=== PATIENT | male | born 1965 | race Caucasian/White ===

== ENCOUNTER 2018-12-24 13:00 | Inpatient (IN) | payer BC ==
[~2018-12-24] VITALS: Ht 180.3 cm; Wt 128.4 kg
[2018-12-24 14:10] LABS: BASO % 0 % (0-3); EOS % 0 % (0-3); HEMATOCRIT 42.2 % (39.0-53.0); HEMOGLOBIN 14.2 g/dL (13.0-17.5); LYMPH # 1.6 x10^3/uL (1.0-4.8); LYMPH % 12 % (24-48); MEAN CORPUSCULAR HEMOGLOBIN 30 pg (25-35); MEAN CORPUSCULAR HGB CONC 34 g/dL (31-37); MEAN CORPUSCULAR VOLUME 89 fL (79-100); MONO # 0.6 x10^3/uL (0.0-1.1); MONO % 4 % (0-9); NEUT % 84 % (31-73); PLATELET COUNT 309 x10^3/uL (140-400); RED BLOOD COUNT 4.74 x10^6/uL (4.30-5.70); RED CELL DISTRIBUTION WIDTH 14.9 % (11.5-14.5); WHITE BLOOD COUNT 14.2 x10^3/uL (4.0-11.0)
[2018-12-24 14:24] LABS: CALCIUM 9.2 mg/dL (8.5-10.1); CREATININE 1.6 mg/dL (0.7-1.3); DIRECT BILIRUBIN 0.3 mg/dL (0.0-0.2); GFR 45.1; TOTAL BILIRUBIN 0.8 mg/dL (0.2-1.0); TOTAL PROTEIN 7.9 g/dL (6.4-8.2)
[2018-12-24] MEDS ORDERED: IV NORMAL SALINE 1000ML BAG 1,000 ML IV SCH (14:33)
[2018-12-24] MEDS ORDERED: METF500T16 PO (14:38)
[2018-12-24] MEDS ORDERED: ONDANSETRON PF 4 MG/2 ML VIAL. IV ONE (14:45)
[2018-12-24] MEDS: fentaNYL PF VIAL 100 MCG/2 ML VIAL IV PRN ×3 (15:03→15:36)
--- NOTE | 2018-12-24 15:21 | RAD ---
EXAM: CT Abdomen and Pelvis without IV contrast CLINICAL HISTORY: BILAT FLANK PAIN N.V COMPARISON: none TECHNIQUE: Helical CT of the abdomen and pelvis without intravenous contrast. Axial, coronal and sagittal reformatted images were generated. PQRS compliance statement - One or more of the following individualized dose reduction techniques were utilized for this study: 1. Automated exposure control 2. Adjustment of the mA and/or kV according to patient size 3. Use of iterative reconstruction technique FINDINGS: Lack of intravenous contrast limits evaluation of solid organs, vasculature, and lymph nodes. Lower chest: Lung bases are essentially clear. Abdomen and Pelvis: No focal liver lesion. High density material within the gallbladder likely sludge. No biliary ductal dilatation. Spleen is unremarkable. Adrenal glands and pancreas are unremarkable. 3 mm left interpolar nonobstructing renal calculus is seen. 5 mm left lower pole nonobstructing renal calculus is seen. There is a 5 mm calculus at the distal left ureter approximately 1.3 cm from the ureterovesicular junction. No focal renal lesion. Mild left hydronephrosis and hydroureter. Appendix is normal. No small or large bowel dilatation. No evidence of bowel obstruction. Moderate colonic stool content. Bladder is grossly unremarkable. No abdominal pelvic ascites. No abdominal pelvic lymphadenopathy. Small fat-containing periumbilical hernia. Bones: Multilevel degenerative changes of the spine most prominent at L4-5 and L5-S1. No aggressive osseous lesion is seen. IMPRESSION: 1. A 5 mm distal left ureteral calculus results in mild left hydronephrosis and hydroureter, approximately 1.3 cm from the ureterovesicular junction. 2. Left interpolar and left lower pole nonobstructing renal calculi are also seen. Electronically signed by: Ata Castaneda MD (12/24/2018 3:18 PM) [facility]
--- NOTE | 2018-12-24 16:32 | PDOC1 ---
History and Physical Date of Admission Date of Admission DATE: 12/24/18 TIME: 16:32 Identification/Chief Complaint Chief Complaint SEEN IN ER presented the emergency department with abdominal pain/bilateral flank pain.had nausea with a few episodes of nonbilious nonbloody emesis . The pain is a sharp shooting pain that radiates around to the LEFT groin. He denies hematuria or history of kidney stones. The pain is severe and started 12/24 CT CONFIRMS A STONE. Past Medical History Past Medical History Past Medical History Past Medical History: Diabetes-Type II, Hypertension Past Surgical History: No Surgical History Alcohol Use: None Drug Use: None FAMILY HX OBESITY GI: No pertinent hx Psych: No pertinent hx Infectious disease: No pertinent hx ENT: No pertinent hx Renal/: No pertinent hx Family History Family History: High Cholestrol, Hypertension Social History Smoke: No ALCOHOL: occassional Drugs: None Current Medications Current Medications Current Medications Fentanyl Citrate (Fentanyl 2ml Vial) 50 mcg PRN Q30MIN PRN IV SEVERE PAIN Last administered on 12/24/18at 15:36; Start 12/24/18 at 14:45; Stop 12/24/18 at 15:36 ; Status DC Sodium Chloride 1,000 ml @ 1,000 mls/hr Q1H IV Last administered on 12/24/18at 14:33; Start 12/24/18 at 14:33; Stop 12/24/18 at 15:32; Status DC Ondansetron HCl (Zofran) 4 mg 1X ONCE IV Last administered on 12/24/18at 15:02 ; Start 12/24/18 at 14:45; Stop 12/24/18 at 14:46; Status DC Active Scripts Active Reported Metformin Hcl 500 Mg Tablet 500 Mg PO BIDWMEALS Allergies Allergies: Coded Allergies: No Known Drug Allergies (Unverified , 12/24/18) ROS Review of System 14 PT ROS NEG EXCEPT NOTED General: No: Chills, Night Sweats, Fatigue, Malaise, Appetite, Other PSYCHOLOGICAL ROS: No: Anxiety, Behavioral Disorder, Concentration difficultie , Decreased libido, Depression, Disorientation, Hallucinations, Hostility, Irritablity, Memory difficulties, Mood Swings, Obsessive thoughts, Physical abuse, Sexual abuse, Sleep disturbances, Suicidal ideation, Other Eyes: No Blurry vision, No Decreased vision, No Double vision, No Dry eyes, No Excessive tearing, No Eye Pain, No Itchy Eyes, No Loss of vision, No Photophobia , No Scotomata, No Uses contacts, No Uses glasses, No Other HEENT: No: Heacaches, Visual Changes, Hearing change, Nasal congestion, Nasal discharge, Oral lesions, Sinus pain, Sore Throat, Epistaxis, Sneezing, Snoring, Tinnitus, Vertigo, Vocal changes, Other ALLERGY AND IMMUNOLOGY: No: Hives, Insect Bite Sensitivity, Itchy/Watery Eyes, Nasal Congestion, Post Nasal Drip, Seasonal Allergies, Other Hematological and Lymphatic: No: Bleeding Problems, Blood Clots, Blood Transfusions, Brusing, Night Sweats, Pallor, Swollen Lymph Nodes, Other ENDOCRINE: No: Breast Changes, Galactorrhea, Hair Pattern Changes, Hot Flashes , Malaise/lethargy, Mood Swings, Palpitations, Polydipsia/polyuria, Skin Changes , Temperature Intolerance, Unexpected Weight Changes, Other Breast: No New/Changing Breast Lumps, No Nipple changes, No Nipple discharge, No Other Respiratory: No: Cough, Hemoptysis, Orthopnea, Pleuritic Pain, Shortness of breath, SOB with excertion, Sputum Changes, Stridor, Tachypnea, Wheezing, Other Cardiovascular: No Chest Pain, No Palpitations, No Orthopnea, No Paroxysmal Noc. Dyspnea, No Edema, No Lt Headedness, No Other Gastrointestinal: Yes Nausea, Yes Abdominal Pain Genitourinary: YES Dysuria, YES Pain, YES Flank Pain Musculoskeletal: No Gait Disturbance, No Joint Pain, No Joint Stiffness, No Joint Swelling, No Muscle Pain, No Muscular Weakness, No Pain In:, No Swelling In:, No Other Neurological: No Behavorial Changes, No Bowel/Bladder ControlChng, No Confusion , No Dizziness, No Gait Disturbance, No Headaches, No Impaired Coord/balance, No Memory Loss, No Numbness/Tingling, No Seizures, No Speech Problems, No Tremors, No Visual Changes, No Weakness, No Other Skin: No Dry Skin, No Eczema, No Hair Changes, No Lumps, No Mole Changes, No Mottling, No Nail Changes, No Pruritus, No Rash, No Skin Lesion Changes, No Other, No Acne Physical Exam Physical Exam Physical Exam Physical Exam SEE ABOVE Constitutional: Well developed, well nourished, MOD acute distress, non-toxic appearance. [] HENT: Normocephalic, atraumatic, bilateral external ears normal, oropharynx moist, no oral exudates, nose normal. [] Eyes: PERRLA, EOMI, conjunctiva normal, no discharge. [] Neck: Normal range of motion, no tenderness, supple, no stridor. [] Cardiovascular:Heart rate regular rhythm, no murmur [] Lungs & Thorax: Bilateral breath sounds clear to auscultation [] Abdomen: Bowel sounds normal, soft, no tenderness, no masses, no pulsatile masses. [] Skin: Warm, dry, no erythema, no rash. [] Back: No tenderness, bilateral cva ttp present. Extremities: No tenderness, no cyanosis, no clubbing, ROM intact, no edema. [] Neurologic: Alert and oriented X 3, normal motor function, normal sensory function, no focal deficits noted. [] Psychologic: Affect normal, judgement normal, mood normal. [] General: Alert, Oriented X3, Cooperative, moderate distress HEENT: Atraumatic, PERRLA Lungs: Clear to auscultation Heart: S1S2, RRR, no thrills, no rubs, no gallops, no murmurs Cardiovascular: S1 Breasts: Not examined Abdomen: Normal bowel sounds, Soft Rectal Exam: not examined Extremities: No clubbing, No cyanosis Neuro: Normal speech, Cranial nerves 3-12 NL Psych/Mental Status: Mental status NL, Mood NL Vitals Vitals Vital Signs Date Time Temp Pulse Resp B/P (MAP) Pulse Ox O2 Delivery O2 Flow Rate FiO2 12/24/18 15:38 98 28 134/70 (91) 99 Room Air 12/24/18 14:05 97.6 97.6 Labs Labs Laboratory Tests Test 12/24/18 14:05 12/24/18 15:30 White Blood Count 14.2 x10^3/uL (4.0-11.0) Red Blood Count 4.74 x10^6/uL (4.30-5.70) Hemoglobin 14.2 g/dL (13.0-17.5) Hematocrit 42.2 % (39.0-53.0) Mean Corpuscular Volume 89 fL (79-100) Mean Corpuscular Hemoglobin 30 pg (25-35) Mean Corpuscular Hemoglobin Concent 34 g/dL (31-37) Red Cell Distribution Width 14.9 % (11.5-14.5) Platelet Count 309 x10^3/uL (140-400) Neutrophils (%) (Auto) 84 % (31-73) Lymphocytes (%) (Auto) 12 % (24-48) Monocytes (%) (Auto) 4 % (0-9) Eosinophils (%) (Auto) 0 % (0-3) Basophils (%) (Auto) 0 % (0-3) Neutrophils # (Auto) 12.0 x10^3uL (1.8-7.7) Lymphocytes # (Auto) 1.6 x10^3/uL (1.0-4.8) Monocytes # (Auto) 0.6 x10^3/uL (0.0-1.1) Eosinophils # (Auto) 0.0 x10^3/uL (0.0-0.7) Basophils # (Auto) 0.0 x10^3/uL (0.0-0.2) Sodium Level 146 mmol/L (136-145) Potassium Level 3.0 mmol/L (3.5-5.1) Chloride Level 106 mmol/L (98-107) Carbon Dioxide Level 24 mmol/L (21-32) Anion Gap 16 (6-14) Blood Urea Nitrogen 11 mg/dL (8-26) Creatinine 1.6 mg/dL (0.7-1.3) Estimated GFR (Cockcroft-Gault) 45.1 Glucose Level 171 mg/dL (70-99) Calcium Level 9.2 mg/dL (8.5-10.1) Total Bilirubin 0.8 mg/dL (0.2-1.0) Direct Bilirubin 0.3 mg/dL (0.0-0.2) Aspartate Amino Transf (AST/SGOT) 21 U/L (15-37) Alanine Aminotransferase (ALT/SGPT) 39 U/L (16-63) Alkaline Phosphatase 49 U/L (46-116) Total Protein 7.9 g/dL (6.4-8.2) Albumin 4.0 g/dL (3.4-5.0) Lipase 79 U/L (73-393) Lactic Acid Level 5.1 mmol/L (0.4-2.0) Laboratory Tests Test 12/24/18 14:05 12/24/18 15:30 White Blood Count 14.2 x10^3/uL (4.0-11.0) Red Blood Count 4.74 x10^6/uL (4.30-5.70) Hemoglobin 14.2 g/dL (13.0-17.5) Hematocrit 42.2 % (39.0-53.0) Mean Corpuscular Volume 89 fL (79-100) Mean Corpuscular Hemoglobin 30 pg (25-35) Mean Corpuscular Hemoglobin Concent 34 g/dL (31-37) Red Cell Distribution Width 14.9 % (11.5-14.5) Platelet Count 309 x10^3/uL (140-400) Neutrophils (%) (Auto) 84 % (31-73) Lymphocytes (%) (Auto) 12 % (24-48) Monocytes (%) (Auto) 4 % (0-9) Eosinophils (%) (Auto) 0 % (0-3) Basophils (%) (Auto) 0 % (0-3) Neutrophils # (Auto) 12.0 x10^3uL (1.8-7.7) Lymphocytes # (Auto) 1.6 x10^3/uL (1.0-4.8) Monocytes # (Auto) 0.6 x10^3/uL (0.0-1.1) Eosinophils # (Auto) 0.0 x10^3/uL (0.0-0.7) Basophils # (Auto) 0.0 x10^3/uL (0.0-0.2) Sodium Level 146 mmol/L (136-145) Potassium Level 3.0 mmol/L (3.5-5.1) Chloride Level 106 mmol/L (98-107) Carbon Dioxide Level 24 mmol/L (21-32) Anion Gap 16 (6-14) Blood Urea Nitrogen 11 mg/dL (8-26) Creatinine 1.6 mg/dL (0.7-1.3) Estimated GFR (Cockcroft-Gault) 45.1 Glucose Level 171 mg/dL (70-99) Calcium Level 9.2 mg/dL (8.5-10.1) Total Bilirubin 0.8 mg/dL (0.2-1.0) Direct Bilirubin 0.3 mg/dL (0.0-0.2) Aspartate Amino Transf (AST/SGOT) 21 U/L (15-37) Alanine Aminotransferase (ALT/SGPT) 39 U/L (16-63) Alkaline Phosphatase 49 U/L (46-116) Total Protein 7.9 g/dL (6.4-8.2) Albumin 4.0 g/dL (3.4-5.0) Lipase 79 U/L (73-393) Lactic Acid Level 5.1 mmol/L (0.4-2.0) Images Images COMPARISON: none TECHNIQUE: Helical CT of the abdomen and pelvis without intravenous contrast. Axial, coronal and sagittal reformatted images were generated. PQRS compliance statement - One or more of the following individualized dose reduction techniques were utilized for this study: 1. Automated exposure control 2. Adjustment of the mA and/or kV according to patient size 3. Use of iterative reconstruction technique FINDINGS: Lack of intravenous contrast limits evaluation of solid organs, vasculature, and lymph nodes. Lower chest: Lung bases are essentially clear. Abdomen and Pelvis: No focal liver lesion. High density material within the gallbladder likely sludge. No biliary ductal dilatation. Spleen is unremarkable. Adrenal glands and pancreas are unremarkable. 3 mm left interpolar nonobstructing renal calculus is seen. 5 mm left lower pole nonobstructing renal calculus is seen. There is a 5 mm calculus at the distal left ureter approximately 1.3 cm from the ureterovesicular junction. No focal renal lesion. Mild left hydronephrosis and hydroureter. Appendix is normal. No small or large bowel dilatation. No evidence of bowel obstruction. Moderate colonic stool content. Bladder is grossly unremarkable. No abdominal pelvic ascites. No abdominal pelvic lymphadenopathy. Small fat-containing periumbilical hernia. Bones: Multilevel degenerative changes of the spine most prominent at L4-5 and L5-S1. No aggressive osseous lesion is seen. IMPRESSION: 1. A 5 mm distal left ureteral calculus results in mild left hydronephrosis and hydroureter, approximately 1.3 cm from the ureterovesicular junction. 2. Left interpolar and left lower pole nonobstructing renal calculi are also seen. Electronically signed by: Ata Castaneda MD (12/24/2018 3:18 PM) [facility] VTE Prophylaxis Ordered VTE Prophylaxis Devices: Yes VTE Pharmacological Prophylaxi: Yes Assessment/Plan Assessment/Plan IMPRESSION: 1. 5 mm distal left ureteral calculus results in mild left hydronephrosis and hydroureter, approximately 1.3 cm from the uretero-vesicular junction. 2. Left interpolar and left lower pole nonobstructing renal calculi are also seen. 3. INTRACTABLE PAIN 4. MORBID OBESITY 5. degenerative changes of the spine most prominent at L4-5 and L5-S1. No aggressive osseous lesion WAS seen. PLAN IV PAIN CONTROL IV FLUID SUPPORT UROLOGY CONSULT DVT PROPHYLAXIS REINIER BRITT MD Dec 24, 2018 16:32
[2018-12-24] MEDS ORDERED: ONDANSETRON PF 4 MG/2 ML VIAL. IV PRN (16:45)
[2018-12-24] MEDS ORDERED: MORPHINE SULFATE 2 MG/ML VIAL. IV PRN (16:45)
[2018-12-24] MEDS: IV NORMAL SALINE 1000ML BAG 1,000 ML IV SCH (16:48)
[2018-12-24] MEDS ORDERED: LOVA40TA2 PO (17:39)
--- NOTE | 2018-12-24 17:40 | PHYS DOC ---
Past Medical History Past Medical History: Diabetes-Type II, Hypertension Past Surgical History: No Surgical History Alcohol Use: None Drug Use: None Adult General Chief Complaint Chief Complaint: ABDOMINAL PAIN HPI HPI 53-year-old male presenting the emergency department today with abdominal pain/ bilateral flank pain. He has had nausea with a few episodes of nonbilious nonbloody emesis as well. The pain is a sharp shooting pain that radiates around to the groin. He denies hematuria or history of kidney stones. The pain is severe and started today. Review of systems is negative for chest pain shortness of breath cough fevers or chills. All other review of systems is negative unless otherwise noted in history of present illness. ED course: 53-year-old male presenting with flank pain found to have 5 mm ureterolithiasis around the UVJ. IV fluids and pain meds given in the emergency department. We will admit the patient for IV pain control and IV fluids. Urology consult ordered. I spoke with Dr. Bergeron who accepts patient for admission. Patient was unable to void in the emergency department. Patient was asked multiple times for urine specimen. We will allow the inpatient team to obtain the urine specimen and follow-up on this. Review of Systems Review of Systems SEE ABOVE. Current Medications Current Medications Current Medications Medications (Trade) Dose Ordered Sig/Onva Start Time Stop Time Status Last Admin Dose Admin Fentanyl Citrate (Fentanyl 2ml Vial) 50 mcg PRN Q30MIN PRN 12/24/18 14:45 12/24/18 15:36 DC 12/24/18 15:36 50 MCG Ondansetron HCl (Zofran) 4 mg 1X ONCE 12/24/18 14:45 12/24/18 14:46 DC 12/24/18 15:02 4 MG Sodium Chloride 1,000 ml @ 1,000 mls/hr Q1H 12/24/18 14:33 12/24/18 15:32 DC 12/24/18 14:33 1,000 MLS/HR Allergies Allergies Allergies Coded Allergies Type Severity Reaction Last Updated Verified No Known Drug Allergies 12/24/18 No Physical Exam Physical Exam SEE ABOVE Constitutional: Well developed, well nourished, no acute distress, non-toxic appearance. [] HENT: Normocephalic, atraumatic, bilateral external ears normal, oropharynx moist, no oral exudates, nose normal. [] Eyes: PERRLA, EOMI, conjunctiva normal, no discharge. [] Neck: Normal range of motion, no tenderness, supple, no stridor. [] Cardiovascular:Heart rate regular rhythm, no murmur [] Lungs & Thorax: Bilateral breath sounds clear to auscultation [] Abdomen: Bowel sounds normal, soft, no tenderness, no masses, no pulsatile masses. [] Skin: Warm, dry, no erythema, no rash. [] Back: No tenderness, bilateral cva ttp present. Extremities: No tenderness, no cyanosis, no clubbing, ROM intact, no edema. [] Neurologic: Alert and oriented X 3, normal motor function, normal sensory function, no focal deficits noted. [] Psychologic: Affect normal, judgement normal, mood normal. [] Current Patient Data Vital Signs Vital Signs Date Time Temp Pulse Resp B/P (MAP) Pulse Ox O2 Delivery O2 Flow Rate FiO2 12/24/18 15:38 98 28 134/70 (91) 99 Room Air 12/24/18 14:05 97.6 97.6 Lab Values Laboratory Tests Test 12/24/18 14:05 12/24/18 15:30 White Blood Count 14.2 x10^3/uL (4.0-11.0) H Red Blood Count 4.74 x10^6/uL (4.30-5.70) Hemoglobin 14.2 g/dL (13.0-17.5) Hematocrit 42.2 % (39.0-53.0) Mean Corpuscular Volume 89 fL (79-100) Mean Corpuscular Hemoglobin 30 pg (25-35) Mean Corpuscular Hemoglobin Concent 34 g/dL (31-37) Red Cell Distribution Width 14.9 % (11.5-14.5) H Platelet Count 309 x10^3/uL (140-400) Neutrophils (%) (Auto) 84 % (31-73) H Lymphocytes (%) (Auto) 12 % (24-48) L Monocytes (%) (Auto) 4 % (0-9) Eosinophils (%) (Auto) 0 % (0-3) Basophils (%) (Auto) 0 % (0-3) Neutrophils # (Auto) 12.0 x10^3uL (1.8-7.7) H Lymphocytes # (Auto) 1.6 x10^3/uL (1.0-4.8) Monocytes # (Auto) 0.6 x10^3/uL (0.0-1.1) Eosinophils # (Auto) 0.0 x10^3/uL (0.0-0.7) Basophils # (Auto) 0.0 x10^3/uL (0.0-0.2) Sodium Level 146 mmol/L (136-145) H Potassium Level 3.0 mmol/L (3.5-5.1) L Chloride Level 106 mmol/L (98-107) Carbon Dioxide Level 24 mmol/L (21-32) Anion Gap 16 (6-14) H Blood Urea Nitrogen 11 mg/dL (8-26) Creatinine 1.6 mg/dL (0.7-1.3) H Estimated GFR (Cockcroft-Gault) 45.1 Glucose Level 171 mg/dL (70-99) H Calcium Level 9.2 mg/dL (8.5-10.1) Total Bilirubin 0.8 mg/dL (0.2-1.0) Direct Bilirubin 0.3 mg/dL (0.0-0.2) H Aspartate Amino Transferase (AST) 21 U/L (15-37) Alanine Aminotransferase (ALT) 39 U/L (16-63) Alkaline Phosphatase 49 U/L (46-116) Total Protein 7.9 g/dL (6.4-8.2) Albumin 4.0 g/dL (3.4-5.0) Lipase 79 U/L (73-393) Lactic Acid Level 5.1 mmol/L (0.4-2.0) *H Laboratory Tests 12/24/18 14:05 Laboratory Tests 12/24/18 14:05 EKG EKG [] Radiology/Procedures Radiology/Procedures [] Course & Med Decision Making Course & Med Decision Making Pertinent Labs and Imaging studies reviewed. (See chart for details) [] Dragon Disclaimer Dragon Disclaimer This electronic medical record was generated, in whole or in part, using a voice recognition dictation system. Departure Departure Impression: Primary Impression: Ureterolithiasis Disposition: ADMITTED INPATIENT Condition: STABLE Referrals: UNKNOWN PCP NAME (PCP) KATHY CAMPOS MD Dec 24, 2018 17:40
[2018-12-24] MEDS ORDERED: LOSA25TA54 PO (18:00)
[2018-12-24] MEDS: KETOROLAC 30 MG/ML VIAL. IV SCH (18:24)
--- NOTE | 2018-12-24 18:40 | NUR ---
pt arrived to unit at 1730 via gurney in stable condition. pt is alert and oriented. pt is rating his pain 1/10. pt states he has not voided since 42. pt and grandson are at bedside with call light within reach. pt is on RA. received report from DEDRA Doan in ER. will continue to monitor.
[2018-12-24] MEDS ORDERED: POTASSIUM CHLORIDE 20 MEQ TABLET.ER. PO ONE (18:45)
[2018-12-24 19:00] VITALS: BP 122/71
--- NOTE | 2018-12-24 19:50 | NUR ---
Pt triggering positive sepsis screening. MD notified and orders received. Will continue to monitor.
[2018-12-24] MEDS ORDERED: ATORVASTATIN CALCIUM 20 MG TABLET PO SCH (21:00)
[2018-12-24] MEDS: CIPROFLOXACIN 400MG PREMIX 200 ML IV SCH (21:08)
[2018-12-24 23:00] VITALS: BP 135/73
[2018-12-24 23:11] LABS: BILIRUBIN,URINE NEGATIVE (NEG); CLARITY,URINE CLEAR; COLOR,URINE YELLOW; NITRITE,URINE NEGATIVE (NEG); PH,URINE 5.5; PROTEIN,URINE NEGATIVE (NEG-TRACE); UROBILINOGEN,URINE 0.2 mg/dL (0.2 mg/dL)
[2018-12-24 23:23] LABS: BACTERIA,URINE 0 /HPF (0-FEW); RBC,URINE 0 /HPF (0-2); WBC,URINE 0 /HPF (0-4)
[2018-12-25] MEDS: KETOROLAC 30 MG/ML VIAL. IV SCH ×3 (00:08→11:38)
[2018-12-25 03:00] VITALS: BP 124/72
[2018-12-25] MEDS: IV NORMAL SALINE 1000ML BAG 1,000 ML IV SCH ×2 (03:36→11:37)
[2018-12-25 07:00] VITALS: BP_SYST 126; BP_SYST 138; BP_DIAS 64; BP_DIAS 79
[2018-12-25 07:51] LABS: BASO % 0 % (0-3); EOS # 0.1 x10^3/uL (0.0-0.7); EOS % 1 % (0-3); HEMATOCRIT 38.9 % (39.0-53.0); HEMOGLOBIN 13.1 g/dL (13.0-17.5); LYMPH # 2.3 x10^3/uL (1.0-4.8); LYMPH % 23 % (24-48); MEAN CORPUSCULAR HEMOGLOBIN 31 pg (25-35); MEAN CORPUSCULAR HGB CONC 34 g/dL (31-37); MEAN CORPUSCULAR VOLUME 91 fL (79-100); MONO # 0.5 x10^3/uL (0.0-1.1); MONO % 5 % (0-9); NEUT # 7.1 x10^3uL (1.8-7.7); NEUT % 71 % (31-73); PLATELET COUNT 233 x10^3/uL (140-400); RED BLOOD COUNT 4.28 x10^6/uL (4.30-5.70); RED CELL DISTRIBUTION WIDTH 15.2 % (11.5-14.5)
[2018-12-25] MEDS ORDERED: POTASSIUM CHLORIDE 20 MEQ TABLET.ER. PO SCH (08:00)
[2018-12-25 08:05] LABS: CALCIUM 8.4 mg/dL (8.5-10.1); GFR 34.9; POTASSIUM 3.8 mmol/L (3.5-5.1)
[2018-12-25] MEDS ORDERED: LOSARTAN POTASSIUM 25 MG TABLET. PO SCH (09:00)
[2018-12-25] MEDS ORDERED: TAMSULOSIN 0.4 MG CAP.ER.24H. PO SCH (09:00)
[2018-12-25] MEDS: CIPROFLOXACIN 400MG PREMIX 200 ML IV SCH (09:07)
--- NOTE | 2018-12-25 09:13 | PDOC2 ---
HALEY MILLER [employer]IE[employer] 12/25/18 0913: UROLOGY CONSULT Date of Consult Date of Consult DATE: 12/25/18 TIME: 09:03 Identification/Chief Complaint Chief Complaint Kidney stone Source Source: Chart review, Patient History of Present Illness Reason for Visit: Pleasant 53 year old male presented to ER last night early with complaints of left sided flank pain. At that time, the pain was 10/10; A CT scan was done and it was discovered that he had a 5 mm distal left ureteral calculus with mil hydronephrosis and hydroureter, about 1.3 cm from the UVJ. There were also left interpolar and lower pole nonobstructing renal calculi. This is the first time he had had any kidney stones. He does admit a history of pre-diabetes, HTN , high cholesterol and testosterone deficiency for which he receives q 2 week shots from [facility]. He was told at his last testosterone monitoring visit that his prostate was "enlarged" but he denies prostate cancer. He also denies LUTS, hematuria or dysuria. His flank pain/abd pain is zero presently and is overall feeling "fine." Past Medical History Cardiovascular: HTN GI: No pertinent hx Psych: No pertinent hx Infectious disease: No pertinent hx ENT: No pertinent hx Renal/: No pertinent hx Endocrine: Diabetes Family History Family History: High Cholestrol, Hypertension Social History No ALCOHOL: none Drugs: None Current Problem List Problems: (1) Ureterolithiasis Current Medications Current Medications Current Medications Atorvastatin Calcium (Lipitor) 20 mg QHS PO Last administered on 12/24/18at 21: 08; Start 12/24/18 at 21:00 Ciprofloxacin/ Dextrose 200 ml @ 200 mls/hr Q12HR IV Last administered on 12/24at 21:08; Start 12/24/18 at 21:00 Fentanyl Citrate (Fentanyl 2ml Vial) 50 mcg PRN Q30MIN PRN IV SEVERE PAIN Last administered on 12/24/18at 15:36; Start 12/24/18 at 14:45; Stop 12/24/18 at 15:36 ; Status DC Ketorolac Tromethamine (Toradol 30mg Vial) 15 mg Q6HRS IV Last administered on 12/25/18at 06:13; Start 12/24/18 at 18:00; Stop 12/27/18 at 12:01 Losartan Potassium (Cozaar) 25 mg DAILY PO ; Start 12/25/18 at 09:00 Morphine Sulfate (Morphine Sulfate) 2 mg PRN Q2HR PRN IV PAIN Last administered on 12/24/18at 16:45; Start 12/24/18 at 16:45; Stop 12/25/18 at 16:44 Ondansetron HCl (Zofran) 4 mg 1X ONCE IV Last administered on 12/24/18at 15:02 ; Start 12/24/18 at 14:45; Stop 12/24/18 at 14:46; Status DC Ondansetron HCl (Zofran) 4 mg PRN Q8HRS PRN IV NAUSEA/VOMITING; Start 12/24/18 at 16:45; Stop 12/25/18 at 16:44 Potassium Chloride (Klor-Con) 20 meq DAILYWBKFT PO ; Start 12/25/18 at 08:00 Potassium Chloride (Klor-Con) 40 meq 1X ONCE PO Last administered on at 19:39; Start 12/24/18 at 18:45; Stop 12/24/18 at 18:46; Status DC Sodium Chloride 1,000 ml @ 100 mls/hr Q10H IV Last administered on 12/25/18at 03:36; Start 12/24/18 at 16:36; Stop 12/25/18 at 16:35 Sodium Chloride 1,000 ml @ 1,000 mls/hr Q1H IV Last administered on 12/24/18at 14:33; Start 12/24/18 at 14:33; Stop 12/24/18 at 15:32; Status DC Tamsulosin HCl (Flomax) 0.4 mg DAILY PO ; Start 12/25/18 at 09:00 Allergies Allergies: Coded Allergies: No Known Drug Allergies (Unverified , 12/24/18) ROS Review Of Systems: CONSTITUTIONAL: No fever or chills EYES: No recent changes SKIN: No rash or itching CARDIOVASCULAR: No chest pain, syncope, palpitations, or edema RESPIRATORY: No SOB or cough GASTROINTESTINAL: No nausea, vomiting or abdominal pain NEUROLOGICAL: No headaches or weakness ENDOCRINE: No cold or heat intolerance GENITOURINARY: No urgency or frequency of urination MUSCULOSKELETAL: No back pain or joint pain LYMPHATICS: No enlarged lymph nodes PSYCHIATRIC: No anxiety or depression Physical Exam Physical Exam: General: Pleasant, no acute distress, well groomed Eyes: conjunctiva anicteric, eyes full range of motion ENT: moist oral mucosa, normal dentition Neck: Trachea midline, no masses Respiratory: unlabored breathing, not using accessory muscles, Back: No CVA pain on testing Abdomen: soft, obese, nontender, nondistended, no hepatosplenomegaly, no masses Skin: no rashes or skin lesions on visualized skin Psych: normal mood, affect. Alert and oriented x 3. Vitals VITALS Vital Signs Date Time Temp Pulse Resp B/P (MAP) Pulse Ox O2 Delivery O2 Flow Rate FiO2 12/25/18 07:00 98.2 73 14 126/79 (95) 98 Room Air 98.2 Labs Labs Laboratory Tests Test 12/24/18 14:05 12/24/18 15:30 12/24/18 19:49 12/24/18 20:42 White Blood Count 14.2 x10^3/uL (4.0-11.0) Red Blood Count 4.74 x10^6/uL (4.30-5.70) Hemoglobin 14.2 g/dL (13.0-17.5) Hematocrit 42.2 % (39.0-53.0) Mean Corpuscular Volume 89 fL (79-100) Mean Corpuscular Hemoglobin 30 pg (25-35) Mean Corpuscular Hemoglobin Concent 34 g/dL (31-37) Red Cell Distribution Width 14.9 % (11.5-14.5) Platelet Count 309 x10^3/uL (140-400) Neutrophils (%) (Auto) 84 % (31-73) Lymphocytes (%) (Auto) 12 % (24-48) Monocytes (%) (Auto) 4 % (0-9) Eosinophils (%) (Auto) 0 % (0-3) Basophils (%) (Auto) 0 % (0-3) Neutrophils # (Auto) 12.0 x10^3uL (1.8-7.7) Lymphocytes # (Auto) 1.6 x10^3/uL (1.0-4.8) Monocytes # (Auto) 0.6 x10^3/uL (0.0-1.1) Eosinophils # (Auto) 0.0 x10^3/uL (0.0-0.7) Basophils # (Auto) 0.0 x10^3/uL (0.0-0.2) Sodium Level 146 mmol/L (136-145) Potassium Level 3.0 mmol/L (3.5-5.1) Chloride Level 106 mmol/L (98-107) Carbon Dioxide Level 24 mmol/L (21-32) Anion Gap 16 (6-14) Blood Urea Nitrogen 11 mg/dL (8-26) Creatinine 1.6 mg/dL (0.7-1.3) Estimated GFR (Cockcroft-Gault) 45.1 Glucose Level 171 mg/dL (70-99) Calcium Level 9.2 mg/dL (8.5-10.1) Total Bilirubin 0.8 mg/dL (0.2-1.0) Direct Bilirubin 0.3 mg/dL (0.0-0.2) Aspartate Amino Transf (AST/SGOT) 21 U/L (15-37) Alanine Aminotransferase (ALT/SGPT) 39 U/L (16-63) Alkaline Phosphatase 49 U/L (46-116) Total Protein 7.9 g/dL (6.4-8.2) Albumin 4.0 g/dL (3.4-5.0) Lipase 79 U/L (73-393) Lactic Acid Level 5.1 mmol/L (0.4-2.0) 2.6 mmol/L (0.4-2.0) Glucose (Fingerstick) 190 mg/dL (70-99) Test 12/24/18 23:05 12/25/18 06:52 12/25/18 07:56 Urine Collection Type Unknown Urine Color Yellow Urine Clarity Clear Urine pH 5.5 Urine Specific [place] 1.015 Urine Protein Negative mg/dL (NEG-TRACE) Urine Glucose (UA) 100 mg/dL (NEG) Urine Ketones (Stick) Negative mg/dL (NEG) Urine Blood Negative (NEG) Urine Nitrite Negative (NEG) Urine Bilirubin Negative (NEG) Urine Urobilinogen Dipstick 0.2 mg/dL (0.2 mg/dL) Urine Leukocyte Esterase Negative (NEG) Urine RBC 0 /HPF (0-2) Urine WBC 0 /HPF (0-4) Urine Bacteria 0 /HPF (0-FEW) White Blood Count 10.0 x10^3/uL (4.0-11.0) Red Blood Count 4.28 x10^6/uL (4.30-5.70) Hemoglobin 13.1 g/dL (13.0-17.5) Hematocrit 38.9 % (39.0-53.0) Mean Corpuscular Volume 91 fL (79-100) Mean Corpuscular Hemoglobin 31 pg (25-35) Mean Corpuscular Hemoglobin Concent 34 g/dL (31-37) Red Cell Distribution Width 15.2 % (11.5-14.5) Platelet Count 233 x10^3/uL (140-400) Neutrophils (%) (Auto) 71 % (31-73) Lymphocytes (%) (Auto) 23 % (24-48) Monocytes (%) (Auto) 5 % (0-9) Eosinophils (%) (Auto) 1 % (0-3) Basophils (%) (Auto) 0 % (0-3) Neutrophils # (Auto) 7.1 x10^3uL (1.8-7.7) Lymphocytes # (Auto) 2.3 x10^3/uL (1.0-4.8) Monocytes # (Auto) 0.5 x10^3/uL (0.0-1.1) Eosinophils # (Auto) 0.1 x10^3/uL (0.0-0.7) Basophils # (Auto) 0.0 x10^3/uL (0.0-0.2) Sodium Level 144 mmol/L (136-145) Potassium Level 3.8 mmol/L (3.5-5.1) Chloride Level 106 mmol/L (98-107) Carbon Dioxide Level 28 mmol/L (21-32) Anion Gap 10 (6-14) Blood Urea Nitrogen 11 mg/dL (8-26) Creatinine 2.0 mg/dL (0.7-1.3) Estimated GFR (Cockcroft-Gault) 34.9 Glucose Level 103 mg/dL (70-99) Calcium Level 8.4 mg/dL (8.5-10.1) Glucose (Fingerstick) 117 mg/dL (70-99) Laboratory Tests Test 12/24/18 14:05 12/24/18 15:30 12/24/18 19:49 12/24/18 20:42 White Blood Count 14.2 x10^3/uL (4.0-11.0) Red Blood Count 4.74 x10^6/uL (4.30-5.70) Hemoglobin 14.2 g/dL (13.0-17.5) Hematocrit 42.2 % (39.0-53.0) Mean Corpuscular Volume 89 fL (79-100) Mean Corpuscular Hemoglobin 30 pg (25-35) Mean Corpuscular Hemoglobin Concent 34 g/dL (31-37) Red Cell Distribution Width 14.9 % (11.5-14.5) Platelet Count 309 x10^3/uL (140-400) Neutrophils (%) (Auto) 84 % (31-73) Lymphocytes (%) (Auto) 12 % (24-48) Monocytes (%) (Auto) 4 % (0-9) Eosinophils (%) (Auto) 0 % (0-3) Basophils (%) (Auto) 0 % (0-3) Neutrophils # (Auto) 12.0 x10^3uL (1.8-7.7) Lymphocytes # (Auto) 1.6 x10^3/uL (1.0-4.8) Monocytes # (Auto) 0.6 x10^3/uL (0.0-1.1) Eosinophils # (Auto) 0.0 x10^3/uL (0.0-0.7) Basophils # (Auto) 0.0 x10^3/uL (0.0-0.2) Sodium Level 146 mmol/L (136-145) Potassium Level 3.0 mmol/L (3.5-5.1) Chloride Level 106 mmol/L (98-107) Carbon Dioxide Level 24 mmol/L (21-32) Anion Gap 16 (6-14) Blood Urea Nitrogen 11 mg/dL (8-26) Creatinine 1.6 mg/dL (0.7-1.3) Estimated GFR (Cockcroft-Gault) 45.1 Glucose Level 171 mg/dL (70-99) Calcium Level 9.2 mg/dL (8.5-10.1) Total Bilirubin 0.8 mg/dL (0.2-1.0) Direct Bilirubin 0.3 mg/dL (0.0-0.2) Aspartate Amino Transf (AST/SGOT) 21 U/L (15-37) Alanine Aminotransferase (ALT/SGPT) 39 U/L (16-63) Alkaline Phosphatase 49 U/L (46-116) Total Protein 7.9 g/dL (6.4-8.2) Albumin 4.0 g/dL (3.4-5.0) Lipase 79 U/L (73-393) Lactic Acid Level 5.1 mmol/L (0.4-2.0) 2.6 mmol/L (0.4-2.0) Glucose (Fingerstick) 190 mg/dL (70-99) Test 12/24/18 23:05 12/25/18 06:52 12/25/18 07:56 Urine Collection Type Unknown Urine Color Yellow Urine Clarity Clear Urine pH 5.5 Urine Specific [place] 1.015 Urine Protein Negative mg/dL (NEG-TRACE) Urine Glucose (UA) 100 mg/dL (NEG) Urine Ketones (Stick) Negative mg/dL (NEG) Urine Blood Negative (NEG) Urine Nitrite Negative (NEG) Urine Bilirubin Negative (NEG) Urine Urobilinogen Dipstick 0.2 mg/dL (0.2 mg/dL) Urine Leukocyte Esterase Negative (NEG) Urine RBC 0 /HPF (0-2) Urine WBC 0 /HPF (0-4) Urine Bacteria 0 /HPF (0-FEW) White Blood Count 10.0 x10^3/uL (4.0-11.0) Red Blood Count 4.28 x10^6/uL (4.30-5.70) Hemoglobin 13.1 g/dL (13.0-17.5) Hematocrit 38.9 % (39.0-53.0) Mean Corpuscular Volume 91 fL (79-100) Mean Corpuscular Hemoglobin 31 pg (25-35) Mean Corpuscular Hemoglobin Concent 34 g/dL (31-37) Red Cell Distribution Width 15.2 % (11.5-14.5) Platelet Count 233 x10^3/uL (140-400) Neutrophils (%) (Auto) 71 % (31-73) Lymphocytes (%) (Auto) 23 % (24-48) Monocytes (%) (Auto) 5 % (0-9) Eosinophils (%) (Auto) 1 % (0-3) Basophils (%) (Auto) 0 % (0-3) Neutrophils # (Auto) 7.1 x10^3uL (1.8-7.7) Lymphocytes # (Auto) 2.3 x10^3/uL (1.0-4.8) Monocytes # (Auto) 0.5 x10^3/uL (0.0-1.1) Eosinophils # (Auto) 0.1 x10^3/uL (0.0-0.7) Basophils # (Auto) 0.0 x10^3/uL (0.0-0.2) Sodium Level 144 mmol/L (136-145) Potassium Level 3.8 mmol/L (3.5-5.1) Chloride Level 106 mmol/L (98-107) Carbon Dioxide Level 28 mmol/L (21-32) Anion Gap 10 (6-14) Blood Urea Nitrogen 11 mg/dL (8-26) Creatinine 2.0 mg/dL (0.7-1.3) Estimated GFR (Cockcroft-Gault) 34.9 Glucose Level 103 mg/dL (70-99) Calcium Level 8.4 mg/dL (8.5-10.1) Glucose (Fingerstick) 117 mg/dL (70-99) Images Images CT ABD/PELVIS IMPRESSION: 1. A 5 mm distal left ureteral calculus results in mild left hydronephrosis and hydroureter, approximately 1.3 cm from the ureterovesicular junction. 2. Left interpolar and left lower pole nonobstructing renal calculi are also seen. KUB: IMPRESSION: Persistent 3 mm calcific density which corresponds to stone seen on most recent CT in left distal ureter. Assessment/Plan Assessment/Plan Labs Ok except for creatinine which is 2.0; pt has a history of HTN and Pre- DM. Pt afebrile. I have requested records from [facility] to see what his most recent [employer] was prior. Continue IVF Continue Flomax Pt may eat, but NPO at DC Nursing to continue to strain urine. Orders entered for Lortab pain med PRN since pain is minimal at this time. Dr. Ayala to round on patient over the weekend. 3 45 pm UPDATE: [facility] was 1.1 at [facility] PCP. Pt has been ok/pain free all day. Dr. Thakur would like to discharge. Ok from a Urology perspective but will require follow up in 1-2 weeks for stone. Discussed with attending RN. KRISTY AYALA MD 12/27/18 1823: UROLOGY CONSULT Assessment/Plan Assessment/Plan agree w spontaneous stone passage. fu cr trend. HALEY MILLER APRN Dec 25, 2018 09:13 KRISTY AYALA MD Dec 27, 2018 18:23
[2018-12-25] MEDS ORDERED: HYDROcodone/APAP 5/325MG 1 TAB TABLET PO PRN (09:15)
--- NOTE | 2018-12-25 09:28 | RAD ---
Indication: Renal stones. Comparison: CT abdomen pelvis from 12/24/2018. TECHNIQUE:: KUB. FINDINGS: Redemonstrated is a 3 mm calcific density projecting over the left lower sacrum which corresponds to a stone seen in the left distal ureter on previous CT. IMPRESSION: Persistent 3 mm calcific density which corresponds to stone seen on most recent CT in left distal ureter. Electronically signed by: Noel Burton DO (12/25/2018 9:25 AM) [facility]
[2018-12-25 11:00] VITALS: BP 132/83
--- NOTE | 2018-12-25 11:34 | PDOC ---
PROGRESS NOTES Chief Complaint Chief Complaint Nephrolithiasis SILVINO SIRS- resolved Hypernatremia- resolved Hypokalemia- resolved HTN HLD Pre-DM History of Present Illness History of Present Illness Mr Mukherjee is a 53yo M who presents with L flank pain and CT confirmed 5mm stone in L distal ureter. He was seen and examined today He was resting comfortably in bed with NAD Reported his pain was well controlled Discussed with RN Vitals Vitals Vital Signs Date Time Temp Pulse Resp B/P (MAP) Pulse Ox O2 Delivery O2 Flow Rate FiO2 12/25/18 09:06 73 126/79 12/25/18 08:00 Room Air 12/25/18 07:00 98.2 14 98 98.2 Physical Exam General: Alert, Oriented X3, Cooperative, No acute distress Heart: Regular rate, No murmurs Lungs: Clear Abdomen: Normal bowel sounds, Soft Extremities: No clubbing, No cyanosis Skin: No rashes, No significant lesion Labs LABS Laboratory Tests Test 12/24/18 14:05 12/24/18 15:30 12/24/18 19:49 12/24/18 20:42 White Blood Count 14.2 x10^3/uL (4.0-11.0) Red Blood Count 4.74 x10^6/uL (4.30-5.70) Hemoglobin 14.2 g/dL (13.0-17.5) Hematocrit 42.2 % (39.0-53.0) Mean Corpuscular Volume 89 fL (79-100) Mean Corpuscular Hemoglobin 30 pg (25-35) Mean Corpuscular Hemoglobin Concent 34 g/dL (31-37) Red Cell Distribution Width 14.9 % (11.5-14.5) Platelet Count 309 x10^3/uL (140-400) Neutrophils (%) (Auto) 84 % (31-73) Lymphocytes (%) (Auto) 12 % (24-48) Monocytes (%) (Auto) 4 % (0-9) Eosinophils (%) (Auto) 0 % (0-3) Basophils (%) (Auto) 0 % (0-3) Neutrophils # (Auto) 12.0 x10^3uL (1.8-7.7) Lymphocytes # (Auto) 1.6 x10^3/uL (1.0-4.8) Monocytes # (Auto) 0.6 x10^3/uL (0.0-1.1) Eosinophils # (Auto) 0.0 x10^3/uL (0.0-0.7) Basophils # (Auto) 0.0 x10^3/uL (0.0-0.2) Sodium Level 146 mmol/L (136-145) Potassium Level 3.0 mmol/L (3.5-5.1) Chloride Level 106 mmol/L (98-107) Carbon Dioxide Level 24 mmol/L (21-32) Anion Gap 16 (6-14) Blood Urea Nitrogen 11 mg/dL (8-26) Creatinine 1.6 mg/dL (0.7-1.3) Estimated GFR (Cockcroft-Gault) 45.1 Glucose Level 171 mg/dL (70-99) Calcium Level 9.2 mg/dL (8.5-10.1) Total Bilirubin 0.8 mg/dL (0.2-1.0) Direct Bilirubin 0.3 mg/dL (0.0-0.2) Aspartate Amino Transf (AST/SGOT) 21 U/L (15-37) Alanine Aminotransferase (ALT/SGPT) 39 U/L (16-63) Alkaline Phosphatase 49 U/L (46-116) Total Protein 7.9 g/dL (6.4-8.2) Albumin 4.0 g/dL (3.4-5.0) Lipase 79 U/L (73-393) Lactic Acid Level 5.1 mmol/L (0.4-2.0) 2.6 mmol/L (0.4-2.0) Glucose (Fingerstick) 190 mg/dL (70-99) Test 12/24/18 23:05 12/25/18 06:52 12/25/18 07:56 Urine Collection Type Unknown Urine Color Yellow Urine Clarity Clear Urine pH 5.5 Urine Specific [place] 1.015 Urine Protein Negative mg/dL (NEG-TRACE) Urine Glucose (UA) 100 mg/dL (NEG) Urine Ketones (Stick) Negative mg/dL (NEG) Urine Blood Negative (NEG) Urine Nitrite Negative (NEG) Urine Bilirubin Negative (NEG) Urine Urobilinogen Dipstick 0.2 mg/dL (0.2 mg/dL) Urine Leukocyte Esterase Negative (NEG) Urine RBC 0 /HPF (0-2) Urine WBC 0 /HPF (0-4) Urine Bacteria 0 /HPF (0-FEW) White Blood Count 10.0 x10^3/uL (4.0-11.0) Red Blood Count 4.28 x10^6/uL (4.30-5.70) Hemoglobin 13.1 g/dL (13.0-17.5) Hematocrit 38.9 % (39.0-53.0) Mean Corpuscular Volume 91 fL (79-100) Mean Corpuscular Hemoglobin 31 pg (25-35) Mean Corpuscular Hemoglobin Concent 34 g/dL (31-37) Red Cell Distribution Width 15.2 % (11.5-14.5) Platelet Count 233 x10^3/uL (140-400) Neutrophils (%) (Auto) 71 % (31-73) Lymphocytes (%) (Auto) 23 % (24-48) Monocytes (%) (Auto) 5 % (0-9) Eosinophils (%) (Auto) 1 % (0-3) Basophils (%) (Auto) 0 % (0-3) Neutrophils # (Auto) 7.1 x10^3uL (1.8-7.7) Lymphocytes # (Auto) 2.3 x10^3/uL (1.0-4.8) Monocytes # (Auto) 0.5 x10^3/uL (0.0-1.1) Eosinophils # (Auto) 0.1 x10^3/uL (0.0-0.7) Basophils # (Auto) 0.0 x10^3/uL (0.0-0.2) Sodium Level 144 mmol/L (136-145) Potassium Level 3.8 mmol/L (3.5-5.1) Chloride Level 106 mmol/L (98-107) Carbon Dioxide Level 28 mmol/L (21-32) Anion Gap 10 (6-14) Blood Urea Nitrogen 11 mg/dL (8-26) Creatinine 2.0 mg/dL (0.7-1.3) Estimated GFR (Cockcroft-Gault) 34.9 Glucose Level 103 mg/dL (70-99) Calcium Level 8.4 mg/dL (8.5-10.1) Glucose (Fingerstick) 117 mg/dL (70-99) Review of Systems Review of Systems Pt reports improved L flank/abdominal pain Pt denies CP, SOB, JOSE, n/v/d, hematuria Assessment and Plan Assessmemt and Plan Problems Medical Problems: (1) Ureterolithiasis Status: Acute Assessment Nephrolithiasis SILVINO SIRS- resolved Hypernatremia- resolved Hypokalemia- resolved HTN HLD Pre-DM Plan CT and KUB results reviewed Appreciate Urology recs SIRS resolved IV pain control PRN IV Cipro IVF IV Zofran PRN Strain urine DVT proph PT/OT Home meds Monitor BG Discharge dispo pending- will await urology recs Comment Review of Relevant I have reviewed the following items antoni (where applicable) has been applied. Labs Laboratory Tests Test 12/24/18 14:05 12/24/18 15:30 12/24/18 19:49 12/24/18 20:42 White Blood Count 14.2 x10^3/uL (4.0-11.0) Red Blood Count 4.74 x10^6/uL (4.30-5.70) Hemoglobin 14.2 g/dL (13.0-17.5) Hematocrit 42.2 % (39.0-53.0) Mean Corpuscular Volume 89 fL (79-100) Mean Corpuscular Hemoglobin 30 pg (25-35) Mean Corpuscular Hemoglobin Concent 34 g/dL (31-37) Red Cell Distribution Width 14.9 % (11.5-14.5) Platelet Count 309 x10^3/uL (140-400) Neutrophils (%) (Auto) 84 % (31-73) Lymphocytes (%) (Auto) 12 % (24-48) Monocytes (%) (Auto) 4 % (0-9) Eosinophils (%) (Auto) 0 % (0-3) Basophils (%) (Auto) 0 % (0-3) Neutrophils # (Auto) 12.0 x10^3uL (1.8-7.7) Lymphocytes # (Auto) 1.6 x10^3/uL (1.0-4.8) Monocytes # (Auto) 0.6 x10^3/uL (0.0-1.1) Eosinophils # (Auto) 0.0 x10^3/uL (0.0-0.7) Basophils # (Auto) 0.0 x10^3/uL (0.0-0.2) Sodium Level 146 mmol/L (136-145) Potassium Level 3.0 mmol/L (3.5-5.1) Chloride Level 106 mmol/L (98-107) Carbon Dioxide Level 24 mmol/L (21-32) Anion Gap 16 (6-14) Blood Urea Nitrogen 11 mg/dL (8-26) Creatinine 1.6 mg/dL (0.7-1.3) Estimated GFR (Cockcroft-Gault) 45.1 Glucose Level 171 mg/dL (70-99) Calcium Level 9.2 mg/dL (8.5-10.1) Total Bilirubin 0.8 mg/dL (0.2-1.0) Direct Bilirubin 0.3 mg/dL (0.0-0.2) Aspartate Amino Transf (AST/SGOT) 21 U/L (15-37) Alanine Aminotransferase (ALT/SGPT) 39 U/L (16-63) Alkaline Phosphatase 49 U/L (46-116) Total Protein 7.9 g/dL (6.4-8.2) Albumin 4.0 g/dL (3.4-5.0) Lipase 79 U/L (73-393) Lactic Acid Level 5.1 mmol/L (0.4-2.0) 2.6 mmol/L (0.4-2.0) Glucose (Fingerstick) 190 mg/dL (70-99) Test 12/24/18 23:05 12/25/18 06:52 12/25/18 07:56 Urine Collection Type Unknown Urine Color Yellow Urine Clarity Clear Urine pH 5.5 Urine Specific [place] 1.015 Urine Protein Negative mg/dL (NEG-TRACE) Urine Glucose (UA) 100 mg/dL (NEG) Urine Ketones (Stick) Negative mg/dL (NEG) Urine Blood Negative (NEG) Urine Nitrite Negative (NEG) Urine Bilirubin Negative (NEG) Urine Urobilinogen Dipstick 0.2 mg/dL (0.2 mg/dL) Urine Leukocyte Esterase Negative (NEG) Urine RBC 0 /HPF (0-2) Urine WBC 0 /HPF (0-4) Urine Bacteria 0 /HPF (0-FEW) White Blood Count 10.0 x10^3/uL (4.0-11.0) Red Blood Count 4.28 x10^6/uL (4.30-5.70) Hemoglobin 13.1 g/dL (13.0-17.5) Hematocrit 38.9 % (39.0-53.0) Mean Corpuscular Volume 91 fL (79-100) Mean Corpuscular Hemoglobin 31 pg (25-35) Mean Corpuscular Hemoglobin Concent 34 g/dL (31-37) Red Cell Distribution Width 15.2 % (11.5-14.5) Platelet Count 233 x10^3/uL (140-400) Neutrophils (%) (Auto) 71 % (31-73) Lymphocytes (%) (Auto) 23 % (24-48) Monocytes (%) (Auto) 5 % (0-9) Eosinophils (%) (Auto) 1 % (0-3) Basophils (%) (Auto) 0 % (0-3) Neutrophils # (Auto) 7.1 x10^3uL (1.8-7.7) Lymphocytes # (Auto) 2.3 x10^3/uL (1.0-4.8) Monocytes # (Auto) 0.5 x10^3/uL (0.0-1.1) Eosinophils # (Auto) 0.1 x10^3/uL (0.0-0.7) Basophils # (Auto) 0.0 x10^3/uL (0.0-0.2) Sodium Level 144 mmol/L (136-145) Potassium Level 3.8 mmol/L (3.5-5.1) Chloride Level 106 mmol/L (98-107) Carbon Dioxide Level 28 mmol/L (21-32) Anion Gap 10 (6-14) Blood Urea Nitrogen 11 mg/dL (8-26) Creatinine 2.0 mg/dL (0.7-1.3) Estimated GFR (Cockcroft-Gault) 34.9 Glucose Level 103 mg/dL (70-99) Calcium Level 8.4 mg/dL (8.5-10.1) Glucose (Fingerstick) 117 mg/dL (70-99) Laboratory Tests Test 12/24/18 14:05 12/24/18 15:30 12/24/18 19:49 12/24/18 20:42 White Blood Count 14.2 x10^3/uL (4.0-11.0) Red Blood Count 4.74 x10^6/uL (4.30-5.70) Hemoglobin 14.2 g/dL (13.0-17.5) Hematocrit 42.2 % (39.0-53.0) Mean Corpuscular Volume 89 fL (79-100) Mean Corpuscular Hemoglobin 30 pg (25-35) Mean Corpuscular Hemoglobin Concent 34 g/dL (31-37) Red Cell Distribution Width 14.9 % (11.5-14.5) Platelet Count 309 x10^3/uL (140-400) Neutrophils (%) (Auto) 84 % (31-73) Lymphocytes (%) (Auto) 12 % (24-48) Monocytes (%) (Auto) 4 % (0-9) Eosinophils (%) (Auto) 0 % (0-3) Basophils (%) (Auto) 0 % (0-3) Neutrophils # (Auto) 12.0 x10^3uL (1.8-7.7) Lymphocytes # (Auto) 1.6 x10^3/uL (1.0-4.8) Monocytes # (Auto) 0.6 x10^3/uL (0.0-1.1) Eosinophils # (Auto) 0.0 x10^3/uL (0.0-0.7) Basophils # (Auto) 0.0 x10^3/uL (0.0-0.2) Sodium Level 146 mmol/L (136-145) Potassium Level 3.0 mmol/L (3.5-5.1) Chloride Level 106 mmol/L (98-107) Carbon Dioxide Level 24 mmol/L (21-32) Anion Gap 16 (6-14) Blood Urea Nitrogen 11 mg/dL (8-26) Creatinine 1.6 mg/dL (0.7-1.3) Estimated GFR (Cockcroft-Gault) 45.1 Glucose Level 171 mg/dL (70-99) Calcium Level 9.2 mg/dL (8.5-10.1) Total Bilirubin 0.8 mg/dL (0.2-1.0) Direct Bilirubin 0.3 mg/dL (0.0-0.2) Aspartate Amino Transf (AST/SGOT) 21 U/L (15-37) Alanine Aminotransferase (ALT/SGPT) 39 U/L (16-63) Alkaline Phosphatase 49 U/L (46-116) Total Protein 7.9 g/dL (6.4-8.2) Albumin 4.0 g/dL (3.4-5.0) Lipase 79 U/L (73-393) Lactic Acid Level 5.1 mmol/L (0.4-2.0) 2.6 mmol/L (0.4-2.0) Glucose (Fingerstick) 190 mg/dL (70-99) Test 12/24/18 23:05 12/25/18 06:52 12/25/18 07:56 Urine Collection Type Unknown Urine Color Yellow Urine Clarity Clear Urine pH 5.5 Urine Specific [place] 1.015 Urine Protein Negative mg/dL (NEG-TRACE) Urine Glucose (UA) 100 mg/dL (NEG) Urine Ketones (Stick) Negative mg/dL (NEG) Urine Blood Negative (NEG) Urine Nitrite Negative (NEG) Urine Bilirubin Negative (NEG) Urine Urobilinogen Dipstick 0.2 mg/dL (0.2 mg/dL) Urine Leukocyte Esterase Negative (NEG) Urine RBC 0 /HPF (0-2) Urine WBC 0 /HPF (0-4) Urine Bacteria 0 /HPF (0-FEW) White Blood Count 10.0 x10^3/uL (4.0-11.0) Red Blood Count 4.28 x10^6/uL (4.30-5.70) Hemoglobin 13.1 g/dL (13.0-17.5) Hematocrit 38.9 % (39.0-53.0) Mean Corpuscular Volume 91 fL (79-100) Mean Corpuscular Hemoglobin 31 pg (25-35) Mean Corpuscular Hemoglobin Concent 34 g/dL (31-37) Red Cell Distribution Width 15.2 % (11.5-14.5) Platelet Count 233 x10^3/uL (140-400) Neutrophils (%) (Auto) 71 % (31-73) Lymphocytes (%) (Auto) 23 % (24-48) Monocytes (%) (Auto) 5 % (0-9) Eosinophils (%) (Auto) 1 % (0-3) Basophils (%) (Auto) 0 % (0-3) Neutrophils # (Auto) 7.1 x10^3uL (1.8-7.7) Lymphocytes # (Auto) 2.3 x10^3/uL (1.0-4.8) Monocytes # (Auto) 0.5 x10^3/uL (0.0-1.1) Eosinophils # (Auto) 0.1 x10^3/uL (0.0-0.7) Basophils # (Auto) 0.0 x10^3/uL (0.0-0.2) Sodium Level 144 mmol/L (136-145) Potassium Level 3.8 mmol/L (3.5-5.1) Chloride Level 106 mmol/L (98-107) Carbon Dioxide Level 28 mmol/L (21-32) Anion Gap 10 (6-14) Blood Urea Nitrogen 11 mg/dL (8-26) Creatinine 2.0 mg/dL (0.7-1.3) Estimated GFR (Cockcroft-Gault) 34.9 Glucose Level 103 mg/dL (70-99) Calcium Level 8.4 mg/dL (8.5-10.1) Glucose (Fingerstick) 117 mg/dL (70-99) Medications Current Medications Fentanyl Citrate (Fentanyl 2ml Vial) 50 mcg PRN Q30MIN PRN IV SEVERE PAIN Last administered on 12/24/18at 15:36; Start 12/24/18 at 14:45; Stop 12/24/18 at 15:36 ; Status DC Sodium Chloride 1,000 ml @ 1,000 mls/hr Q1H IV Last administered on 12/24/18at 14:33; Start 12/24/18 at 14:33; Stop 12/24/18 at 15:32; Status DC Ondansetron HCl (Zofran) 4 mg 1X ONCE IV Last administered on 12/24/18at 15:02 ; Start 12/24/18 at 14:45; Stop 12/24/18 at 14:46; Status DC Ondansetron HCl (Zofran) 4 mg PRN Q8HRS PRN IV NAUSEA/VOMITING; Start 12/24/18 at 16:45; Stop 12/25/18 at 16:44 Morphine Sulfate (Morphine Sulfate) 2 mg PRN Q2HR PRN IV PAIN Last administered on 12/24/18at 16:45; Start 12/24/18 at 16:45; Stop 12/25/18 at 16:44 Sodium Chloride 1,000 ml @ 100 mls/hr Q10H IV Last administered on 12/25/18at 03:36; Start 12/24/18 at 16:36; Stop 12/25/18 at 16:35 Ketorolac Tromethamine (Toradol 30mg Vial) 15 mg Q6HRS IV Last administered on 12/25/18 06:13; Start 12/24/18 at 18:00; Stop 12/27/18 at 12:01 Losartan Potassium (Cozaar) 25 mg DAILY PO Last administered on 12/25/18 09:06 ; Start 12/25/18 at 09:00 Atorvastatin Calcium (Lipitor) 20 mg QHS PO Last administered on 12/24/18at 21: 08; Start 12/24/18 at 21:00 Potassium Chloride (Klor-Con) 40 meq 1X ONCE PO Last administered on at 19:39; Start 12/24/18 at 18:45; Stop 12/24/18 at 18:46; Status DC Potassium Chloride (Klor-Con) 20 meq DAILYWBKFT PO Last administered on at 09:06; Start 12/25/18 at 08:00 Tamsulosin HCl (Flomax) 0.4 mg DAILY PO Last administered on 12/25/18 09:06; Start 12/25/18 at 09:00 Ciprofloxacin/ Dextrose 200 ml @ 200 mls/hr Q12HR IV Last administered on 12/25 09:07; Start 12/24/18 at 21:00 Acetaminophen/ Hydrocodone Bitart (Lortab 5/325) 1 tab PRN Q4HRS PRN PO PAIN; Start 12/25/18 at 09:15 Active Scripts Active Reported Losartan Potassium (Losartan Potassium) 25 Mg Tablet 25 Mg PO DAILY Lovastatin 40 Mg Tablet 60 Mg PO DAILYWSUP Metformin Hcl 500 Mg Tablet 500 Mg PO BIDWMEALS Vitals/I & O Vital Sign - Last 24 Hours 12/24/18 12/24/18 12/24/18 12/24/18 14:05 15:03 15:04 15:11 Temp 97.6 97.6 Pulse 110 106 Resp 28 28 B/P (MAP) 164/70 (101) 137/94 (108) Pulse Ox 97 98 100 100 O2 Delivery Room Air Room Air Room Air Room Air 12/24/18 12/24/18 12/24/18 12/24/18 15:20 15:36 15:38 16:45 Pulse 105 98 Resp 28 28 B/P (MAP) 141/65 (90) 134/70 (91) Pulse Ox 100 99 99 98 O2 Delivery Room Air Room Air Room Air Room Air 12/24/18 12/24/18 12/24/18 12/24/18 16:50 17:30 18:02 19:00 Temp 97.5 97.5 Pulse 98 101 Resp 16 18 B/P (MAP) 141/66 (91) 122/71 (88) Pulse Ox 98 99 O2 Delivery Room Air Room Air Room Air Room Air 12/24/18 12/24/18 12/25/18 12/25/18 19:50 23:00 03:00 07:00 Temp 98.4 97.9 98.2 98.4 97.9 98.2 Pulse 92 77 73 Resp 18 18 14 B/P (MAP) 135/73 (93) 124/72 (89) 126/79 (95) Pulse Ox 97 98 98 O2 Delivery Room Air Room Air Room Air Room Air 12/25/18 12/25/18 08:00 09:06 Pulse 73 B/P (MAP) 126/79 O2 Delivery Room Air Intake and Output 12/24/18 12/24/18 12/25/18 14:59 22:59 06:59 Intake Total 1240 ml 2190 ml Output Total 450 ml Balance 1240 ml 1740 ml JUAN JOSE ROTH III DO Dec 25, 2018 11:34
--- NOTE | 2018-12-25 12:19 | NUR ---
SW following for discharge planning. Discussed with RN, RN advised no SW needs. Pt from home with . SW will continue to follow for any discharge planning needs.
--- NOTE | 2018-12-25 12:25 | DS ---
DATE OF DISCHARGE: 12/25/2018 ADMISSION DIAGNOSIS: A 5 cm renal stone. DISCHARGE DIAGNOSIS: Resolving renal stone. HOSPITAL COURSE: The patient is a pleasant middle-aged male, who presented with a renal stone that was 5 mm. He was admitted. We consulted Urology. We strained his urine, gave him fluids and pain meds. Over the past 24 hours, he has returned to his baseline. The stone seemed to have dropped down into the bladder. There is no surgery scheduled. We suspect he will be able to go home and pass the rest away. He was seen and examined this morning. Heart tones were normal. His lungs were clear. DISPOSITION: Home. ACTIVITY: As tolerated. DIET: Low sodium. MEDICATIONS: Please see the MRAD. TOTAL TIME: 33 minutes. JUAN JOSE ROTH DO DR: MICKEY/roaxne JOB#: [id number] / [id number]
[2018-12-25 15:00] VITALS: BP 145/88
--- NOTE | 2018-12-25 16:50 | NUR ---
pt is discharged home with self care at 1635 via ambulation via sihara, continuity editor. pt is in stable condition. pt has all belongings with him. pt received discharge instructions and prescriptions and stated he had no further questions for me. strainer was given to pt to strain urine at home in case stone passes.
[2019-01-02] MEDS ORDERED: TAMS0.4C97 PO (12:45)
== END 2018-12-25 16:35 | disposition home or self-care (01) | DRG 694 ==
LOC: ER 13:00 → 4 NORTH 16:19
PROVIDERS: ADMIT Family Medicine; ATTEND Family Medicine
DX: N13.2 Hydronephrosis with renal and ureteral calculous obstruction (principal); E87.0 Hyperosmolality and hypernatremia; R65.10 Systemic inflammatory response syndrome (SIRS) of non-infectious origin without acute organ dysfunction; N17.9 Acute kidney failure, unspecified; E11.9 Type 2 diabetes mellitus without complications; E66.01 Morbid (severe) obesity due to excess calories; E78.00 Pure hypercholesterolemia, unspecified; E78.5 Hyperlipidemia, unspecified; E87.6 Hypokalemia; I10 Essential (primary) hypertension; Z82.49 Family history of ischemic heart disease and other diseases of the circulatory system; Z68.39 Body mass index [BMI] 39.0-39.9, adult; Z79.899 Other long term (current) drug therapy
CPT/HCPCS: 36415; 74018; 74176; 80048; 80076; 81001; 82962; 83605; 83690; 85025; 96361; 96374; 96375; 96376; J0744; J1885; J2270; J2405; J3010; J7030; 99285-25

== ENCOUNTER → 2019-04-01 | Outpatient (CLI) | payer BC ==
[2019-01-02 11:00] VITALS: BP 119/76
[~2019-04-01] MED LIST: LOSA25TA54 PO; LOVA40TA2 PO; METF500T16 PO; TAMS0.4C97 PO
--- NOTE | 2019-04-01 15:08 | RAD ---
Bilateral renal ultrasound without comparison for renal calculi. TECHNIQUE AND FINDINGS: Real-time grayscale and color Doppler evaluation of the kidneys and urinary bladder is performed. The IVC is poorly visualized. The aorta is nonaneurysmal, but notable for atherosclerosis. The urinary bladder is decompressed. The right kidney measures 12.4 x 5.2 x 5.5 cm and the left measures 11.6 x 5.1 x 5.9 cm. There are few small parenchymal calculi on the left, with no evidence of obstruction. There is no hydronephrosis involving either kidney. There is a 1.2 x 1.1 x 1.2 cm simple cyst at the midpole the left kidney. Normal color flow to both kidneys. IMPRESSION: 1. Small left nonobstructing renal calculi. No evidence of hydronephrosis involving either kidney. Electronically signed by: Franki Guillory MD (04/01/2019 3:05 PM) [facility]
== END | disposition home or self-care (01) ==
LOC: US 07:29
PROVIDERS: ATTEND Urology
DX: N20.0 Calculus of kidney (principal); N28.1 Cyst of kidney, acquired
CPT/HCPCS: 76770

== ENCOUNTER → 2022-01-16 | Outpatient (CLI) | payer BC ==
[2019-01-02 11:00] VITALS: BP 119/76
--- NOTE | 2022-01-17 09:00 | KCIC ---
Exam: XR KNEE 4 VIEWS WITH PATELLA_RT History: Right knee pain and swelling. Comparison: None. Findings: Osseous mineralization is normal. No acute fracture or dislocaton. Medial tibiofemoral compartment na rrowing. Small patellofemoral compartment osteophytes. There is a suprapatellar effusion. Small quadr iceps insertion enthesophyte. Impression: 1. Degenerative changes of the right knee with medial tibiofemoral compartment narrowing and small e ffusion. No acute osseous abnormality. Electronically signed by: Brian Carolina MD (01/17/2022 8:57 AM) [id number]
== END ==
LOC: KCIC 14:58
PROVIDERS: ATTEND Orthopaedic Surgery Sports Medicine
DX: M17.11 Unilateral primary osteoarthritis, right knee (principal); M25.461 Effusion, right knee; M76.891 Other specified enthesopathies of right lower limb, excluding foot; M25.861 Other specified joint disorders, right knee
CPT/HCPCS: 73564